=== PATIENT | female | born 1950 | race Caucasian/White ===

== ENCOUNTER 2023-04-15 14:53 | Observation (INO) ==
[2023-04-15 15:34] LABS: INR 1.02 (0.83-1.13)
[2023-04-15 15:36] LABS: ABS Basophils 0.1 10^3/uL (0.0-0.1); ABS Eosinophils 0.2 10^3/uL (0.0-0.5); ABS Lymphocytes 2.4 10^3/uL (1.0-4.8); ABS Monocytes 0.6 10^3/uL (0.0-0.9); ABS Neutrophils 5.7 10^3/uL (1.5-7.6); ABS Nucleated RBC 0.01 10^3/ul; Eosinophil % 1.8 %; Hematocrit 38.9 % (35-45); Hemoglobin 13.3 g/dL (11.5-14.3); Lymphocyte % 26.9 %; Mean Corpuscular Hemoglobin 30.4 pg (27-33); Mean Corpuscular Hgb Conc 34.3 g/dL (31-36); Mean Corpuscular Volume 88.5 fL (80-97); Mean Platelet Volume 8.3 fL (7.5-11.2); Nucleated Red Blood Cells % 0.1 %/100WBC (0.0-0.8); Platelet Count 262 10^3/uL (150-450); Red Blood Count 4.39 10^6/uL (3.63-4.92); Red Cell Distribution Width 13.6 % (12-17)
[2023-04-15 16:00] LABS: Albumin 4.8 g/dL (3.2-5.2); Albumin/Globulin Ratio 1.5 (1-3); Calcium 9.9 mg/dL (8.6-10.3); Creatinine, Serum 0.86 mg/dL (0.51-0.95); Globulin 3.1 g/dL (2-4); Potassium 3.7 mmol/L (3.5-5.0); Total Bilirubin 0.5 mg/dL (0.2-1.0); Total Protein 7.9 g/dL (6.4-8.9); eGFR CKD-EPI 72.2 (>60)
[2023-04-15 16:54] LABS: High Sensitivity Troponin 1 Hr 7 pg/mL (<15)
[2023-04-15] MEDS ORDERED: Iohexol 350 (CONTRAST) 500 ML MDV IV ONE (17:19)
[2023-04-15] MEDS: Aspirin EC 81 mg TAB.EC (enteric coated) PO SCH (22:02)
[2023-04-15 22:13] LABS: HDL Cholesterol 74.2 mg/dL
[2023-04-15] MEDS ORDERED: Enoxaparin 40 MG/0.4 ML SYR SUBCUT SCH (23:00)
[2023-04-16] MEDS: Aspirin EC 81 mg TAB.EC (enteric coated) PO SCH (08:35)
[2023-04-16] MEDS ORDERED: Aspirin EC 81 mg TAB.EC (enteric coated) PO SCH (09:00)
[2023-04-16 11:28] VITALS: BP 153/98
== END 2023-04-16 11:28 | disposition home or self-care (01) ==
LOC: ED 14:53 → EDHOLD 14:53 → SUATTDRO 19:59 → MEDTELE 04-16 09:29 → EDHOLD 04-16 11:27
PROVIDERS: ADMIT Internal Medicine; ATTEND Hospitalist

== ENCOUNTER 2024-01-17 09:54 | Observation (INO) ==
[~2024-01-17 09:54] MED LIST: Lidocaine 2% PF 5 ML VIAL ONE; Midazolam 2 mg/2 ml VIAL 1 mg/ml 2 ml VIAL (2 mg) ONE; NS 0.45% 1000 ml BAG 1,000 ML IV SCH; Naloxone 0.4 mg VIAL 0.4 mg/ml 1 ml VIAL IV PRN; ROPIVACAINE 5 MG/ML 30 ML BTL (0.5%) ONE; fentaNYL 100 mcg/2 ml 50 MCG/ML VIAL ONE
[2024-01-17] MEDS ORDERED: ceFAZolin 2 GM PREMIX 2 GM/50 ML BAG ONE (10:51)
[2024-01-17] MEDS ORDERED: Tranexamic Acid 1 GM/100ML BAG 2,000 MG/200 ML BAG IV ONE (10:51)
[2024-01-17] MEDS: Lactated Ringers 1000 ml BAG 1,000 ML IV SCH ×2 (10:55→17:40)
[2024-01-17] MEDS: Buffered Lidocaine 1% SYRIN 1 ml INTRADERM ONE (10:55)
[2024-01-17] MEDS: Acetaminophen IV 1 GM/100ML 1,000 MG/100 ML BAG IV ONE (10:55)
[2024-01-17 11:11] LABS: Rapid COVID-19 Molecular Undetected (Undetected)
[2024-01-17] MEDS ORDERED: Midazolam 2 mg/2 ml VIAL 1 mg/ml 2 ml VIAL (2 mg) ONE (11:58)
[2024-01-17] MEDS ORDERED: Famotidine IV 10 MG/ML 2 ml VIAL (20 mg) ONE (11:58)
[2024-01-17] MEDS ORDERED: ROPIVACAINE 5 MG/ML 30 ML BTL (0.5%) ONE (11:58)
[2024-01-17] MEDS ORDERED: Dexamethasone IV 4 MG/ML VIAL 1 ml VIAL ONE (11:58)
[2024-01-17] MEDS ORDERED: fentaNYL 100 mcg/2 ml 50 MCG/ML VIAL ONE ×4 (12:00→15:59)
[2024-01-17] MEDS ORDERED: Rocuronium 50 mg VIAL 10 mg/ml 5 ml VIAL (50 mg) ONE (12:31)
[2024-01-17] MEDS ORDERED: Magnesium Hydroxide LIQ 30 ML UDC PO PRN (12:57)
[2024-01-17] MEDS ORDERED: Morphine 2 MG/ML SYRINGE IV PRN (12:57)
[2024-01-17] MEDS ORDERED: Ondansetron ODT 4 mg TAB 4 MG TAB PO PRN (12:57)
[2024-01-17] MEDS ORDERED: Lactulose 30 ml UDC PO PRN (12:57)
[2024-01-17] MEDS ORDERED: Calcium Carb (TUMS) 500 mg CHEW TAB PO PRN (12:57)
[2024-01-17] MEDS ORDERED: Ondansetron 4 mg VIAL 2 MG/ML 2 ml VIAL ONE (14:01)
[2024-01-17] MEDS: fentaNYL 100 mcg/2 ml 50 MCG/ML VIAL IV PRN (16:02)
[2024-01-17] MEDS: Magnesium Hydroxide LIQ 30 ML UDC PO SCH (20:05)
[2024-01-17] MEDS: ceFAZolin 2 GM PREMIX 2 GM/50 ML BAG IV SCH (20:08)
[2024-01-18 06:10] LABS: Hematocrit 33.1 % (35-45); Hemoglobin 11.2 g/dL (11.5-14.3); Mean Platelet Volume 8.2 fL (7.5-11.2); Platelet Count 221 10^3/uL (150-450)
[2024-01-18 06:33] LABS: Calcium 8.9 mg/dL (8.6-10.3); Creatinine, Serum 0.81 mg/dL (0.51-0.95); Potassium 4.3 mmol/L (3.5-5.0); eGFR CKD-EPI 77.1 (>60)
[2024-01-18] MEDS: Vitamin THERAPEUTIC TAB PO SCH (09:00)
[2024-01-18 14:06] VITALS: BP 123/70
== END 2024-01-18 14:45 | disposition home or self-care (01) ==
LOC: OR 09:54 → SSU 09:54
PROVIDERS: ADMIT Orthopaedic Surgery Adult Reconstructive Orthopaedic Surgery; ATTEND Orthopaedic Surgery Adult Reconstructive Orthopaedic Surgery